=== PATIENT | male | born 1990 | race Caucasian/White ===

== ENCOUNTER 2021-08-25 22:36 | Emergency (ER) | payer SELFPAY ==
--- NOTE | 2021-08-25 22:38 | XRR_ITS ---
PROCEDURE INFORMATION: Exam: XR Chest Exam date and time: 08/25/2021 11:44 PM Age: 31 years old Clinical indication: Radiating; Patient HX: C/O chest pain with radiation to left arm. ; Additional info: Cp TECHNIQUE: Imaging protocol: XR of the chest. Views: 1 view. COMPARISON: No relevant prior studies available. FINDINGS: Lungs: No consolidation. Pleural spaces: No pleural effusion. No pneumothorax. Heart/Mediastinum: No cardiomegaly. Bones/joints: Unremarkable. XR/XR chest 1V portable [id number] IMPRESSION: No acute abnormality demonstrated.
[2021-08-25 22:40] VITALS: BP 127/85; PULSE 82; RESP 20; TEMP 36.6; O2SAT 98; BMI 28.5
[2021-08-25 23:08] LABS: Basophils # 0.1 10^3/uL (0.0-0.1); Basophils % 0.5 %; Eosinophils # 0.3 10^3/uL (0.0-0.8); Eosinophils % 2.3 %; Hematocrit 49.2 % (42.0-52.0); Hemoglobin 16.6 g/dL (11.7-16.6); Lymphocytes # 2.6 10^3/uL (0.8-4.8); Lymphocytes % 21.1 %; Mean Corpuscular HGB Conc 33.7 g/dL (30.0-36.0); Mean Corpuscular Hemoglobin 30.5 pg (28.0-34.0); Mean Corpuscular Volume 90.3 fl (80-94); Mean Platelet Volume 10.3 fL (7.4-10.4); Monocytes # 1.4 10^3/uL (0.2-0.9); Neutrophils # 7.99 10^3/uL (1.8-7.7); Neutrophils % 64.8 %; Nucleated Red Blood Cells % 0 %; Platelet Count 245 10^3/cmm (130-400); Red Blood Count 5.45 10^6/uL (4.1-5.3); Red Cell Distribution Width 12.3 % (12.1-15.1); White Blood Count 12.4 10^3/uL (4.0-10.0)
[2021-08-25 23:35] LABS: Alanine Aminotransferase 21 U/L (0-41); Albumin Level 4.9 g/dL (3.5-5.2); Alkaline Phosphatase 87 IU/L (40-130); Anion Gap 15.1 (5-19); Aspartate Amino Transferase 16 U/L (0-40); Blood Urea Nitrogen 17 mg/dL (6-20); Calcium 9.6 mg/dL (8.5-10.5); Carbon Dioxide 28 mmol/L (22-29); Chloride 100 mmol/L (98-107); Globulin 2.7 g/dL (1.3-4.6); Glomerular Filtration Rate 87.2 mL/min (90-130); Glucose 90 mg/dL (65-115); Osmolality Calculated 289 mOsm/kg (285-295); Potassium 4.1 mmol/L (3.5-5.1); Sodium 139 mmol/L (136-145); Total Protein 7.6 g/dL (6.6-8.7)
[2021-08-25 23:36] LABS: Troponin(5th) Baseline 6 ng/L (0-15)
[2021-08-26 01:00] VITALS: BP 119/78; PULSE 96; RESP 16; O2SAT 96
[2021-08-26 01:26] VITALS: PULSE 105; RESP 18; O2SAT 96
[2021-08-26 01:56] VITALS: BP 142/96; PULSE 74; RESP 18; O2SAT 97
[2021-08-26 02:01] LABS: Troponin 5 2HR Delta 0 ABS# (0-10)
--- NOTE | 2021-08-26 02:10 | W.ED.CHESTPA ---
HPI - Chest Pain General: Chief Complaint: Chest Pain Stated Complaint: CP/left arm numbness Time Seen by Provider: 08/26/21 01:02 Source: patient Mode of arrival: ambulatory Limitations: no limitations History of Present Illness: 31-year-old male who states he has been having some left shoulder pain has been intermittent over the last week he states is also radiated to his left chest. 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 He states that tonight though the pain had worsened and was sharp in nature going down his arm and started 10 PM and has not lessened. He is concerned that it kept going. He denies any worsening or improving factors. Denies any heart history. Associated symptoms: Deny abdominal pain, dyspnea, fever(s), nausea or vomiting Review of Systems Const: Denies: fever(s), chills, body aches or change in appetite Eyes: Denies: blurry vision or eye discomfort ENMT: Denies: throat pain or dental pain Card: Reports: chest pain Resp: Denies: dyspnea GI: Denies: abdominal pain, nausea, vomiting or diarrhea : Denies: dysuria Musc: Reports: extremity pain Skin/Breast: Denies: rash Neuro: Denies: headache(s) Psych: Denies: depression Antonio/Lymph: Denies: easy bruising All/Imm: Denies: urticaria Physical Exam Const: COMMON NORMALS: no acute distress, patient oriented x3 and healthy appearing HENMT: COMMON NORMALS: normocephalic and atraumatic HEAD & SCALP: normocephalic and atraumatic Eye: COMMON NORMALS: Equal, round and reactive pupils present and EOMs intact bilaterally PUPIL: Yes Equal, round and reactive pupils present Neck/C-Spine: COMMON NORMALS: full ROM and supple Chest: COMMONS NORMALS: normal inspection of the chest and normal palpation of entire chest wall Resp: COMMON NORMALS: normal respiratory effort, No retractions, No use of accessory muscles and clear to auscultation bilaterally AUSCULTATION: clear to auscultation bilaterally Cardio: COMMON NORMALS: regular rate, regular rhythm and No murmurs present (Cardio) RATE: regular rate RHYTHM: regular rhythm GI: COMMON NORMALS: Normal to inspection, nondistended, normoactive bowel sounds present, Soft to palpation, non-tender and no masses PALPATION: Yes Soft to palpation Extremity: COMMON NORMALS: normal to inspection and full ROM NARRATIVE EXTREMITY EXAM: Point tender over left lateral trapezius that reproduces his pain full range of motion without difficulty distal pulses intact Neuro: COMMON NORMALS: patient oriented x3, moves all extremities and no focal motor deficits Psych: COMMON NORMALS: mental status grossly normal, Normal thought process present and cooperative THOUGHT PROCESS: Normal thought process present Skin: COMMON NORMALS: no rashes or lesions noted and no wounds GENERAL SKIN EXAM: no rashes or lesions noted Course Vital Signs: Vital signs: Vital Signs Temperature 97.8 F 08/25/21 22:40 Pulse Rate 82 08/25/21 22:40 Respiratory Rate 20 H 08/25/21 22:40 Blood Pressure 127/85 08/25/21 22:40 Pulse Oximetry 98 08/25/21 22:40 MDM - Chest Pain Medical Decision Making Patient presents here with some chest pains very atypical in nature on exam he does have tenderness over his left shoulder seems to be where his pain is actually originating from. He states he is at arm a lot at work could be an overuse injury x-ray here is normal he is full range of motion both troponins are normal he is stable for discharge will place him on Naprosyn Robaxin he is to follow-up his PCP and return if worsening. Lab Data : 08/25/21 23:03 08/25/21 23:03 Radiology Impressions Chest X-Ray 08/25/21 22:38 IMPRESSION: No acute abnormality demonstrated. Laboratory Results WBC 12.4 10^3/uL (4.0-10.0) H 08/25/21 23:03 RBC 5.45 10^6/uL (4.1-5.3) H 08/25/21 23:03 Hgb 16.6 g/dL (11.7-16.6) 08/25/21 23:03 Hct 49.2 % (42.0-52.0) 08/25/21 23:03 MCV 90.3 fl (80-94) 08/25/21 23:03 MCH 30.5 pg (28.0-34.0) 08/25/21 23:03 MCHC 33.7 g/dL (30.0-36.0) 08/25/21 23:03 RDW 12.3 % (12.1-15.1) 08/25/21 23:03 Plt Count 245 10^3/cmm (130-400) 08/25/21 23:03 MPV 10.3 fL (7.4-10.4) 08/25/21 23:03 Neut % (Auto) 64.8 % 08/25/21 23:03 Lymph % (Auto) 21.1 % 08/25/21 23:03 Stone % (Auto) 11.0 % 08/25/21 23:03 Eos % (Auto) 2.3 % 08/25/21 23:03 Baso % (Auto) 0.5 % 08/25/21 23:03 Neut # (Auto) 7.99 10^3/uL (1.8-7.7) H 08/25/21 23:03 Lymph # (Auto) 2.6 10^3/uL (0.8-4.8) 08/25/21 23:03 Stone # (Auto) 1.4 10^3/uL (0.2-0.9) H 08/25/21 23:03 Eos # (Auto) 0.3 10^3/uL (0.0-0.8) 08/25/21 23:03 Baso # (Auto) 0.1 10^3/uL (0.0-0.1) 08/25/21 23:03 Nucleated RBC % (auto) 0 % 08/25/21 23:03 Nucleated RBCs # 0.0 /100WBC 08/25/21 23:03 Sodium 139 mmol/L (136-145) 08/25/21 23:03 Potassium 4.1 mmol/L (3.5-5.1) 08/25/21 23:03 Chloride 100 mmol/L (98-107) 08/25/21 23:03 Carbon Dioxide 28 mmol/L (22-29) 08/25/21 23:03 Anion Gap 15.1 (5-19) 08/25/21 23:03 BUN 17 mg/dL (6-20) 08/25/21 23:03 Creatinine 1.0 mg/dL (0.7-1.2) 08/25/21 23:03 GFR Calculation 87.2 mL/min (90-130) L 08/25/21 23:03 Glucose 90 mg/dL (65-115) 08/25/21 23:03 Calculated Osmolality 289 mOsm/kg (285-295) 08/25/21 23:03 Calcium 9.6 mg/dL (8.5-10.5) 08/25/21 23:03 Total Bilirubin 1.0 mg/dL (0.15-1.2) 08/25/21 23:03 AST 16 U/L (0-40) 08/25/21 23:03 ALT 21 U/L (0-41) 08/25/21 23:03 Alkaline Phosphatase 87 IU/L (40-130) 08/25/21 23:03 Troponin T Baseline 6 ng/L (0-15) 08/25/21 23:03 Troponin T 120 Minute 6.00 ng/L (0-15) 08/26/21 01:24 Delta Troponin T 0 ABS# (0-10) 08/26/21 01:24 Total Protein 7.6 g/dL (6.6-8.7) 08/25/21 23:03 Albumin 4.9 g/dL (3.5-5.2) 08/25/21 23:03 Globulin 2.7 g/dL (1.3-4.6) 08/25/21 23:03 EKG Data EKG 1: I personally reviewed and interpreted this EKG as follows: EKG interpretation date: 08/25/21 EKG interpretation time: 22:46 Interpretation: Normal sinus rhythm heart rate [address] or T wave normalities QRS 93 QTc 364 Discharge Plan Discharge Patient Disposition: Home Clinical Impression: Chest pain Qualifiers: Chest pain type: unspecified Qualified Code(s): R07.9 - Chest pain, unspecified Left shoulder pain Qualifiers: Chronicity: acute Qualified Code(s): M25.512 - Pain in left shoulder Condition: Stable Prescriptions: New methocarbamol 750 mg tablet 750 mg PO Q6H PRN (Reason: spasms) Qty: 20 0RF Naprosyn 500 mg tablet 500 mg PO BID PRN (Reason: pain) Qty: 20 0RF Discharge Orders: Discharge ED (Routine); Ordered 08/26/21 Ordered By: Bassem Fang Discharge Diet: Advance as tolerated Discharge Activity: Resume usual activity Patient Instructions: Chest Pain (ED), Shoulder Pain (ED) Coding Level of Care Code ED Professional Services Manager for [facility]
[2021-08-26 02:30] VITALS: BP 135/82; PULSE 91; RESP 19; O2SAT 97
[2021-08-26] MEDS: naproxen 500 mg Tablet PO (02:37)
== END 2021-08-26 02:35 | disposition home or self-care (01) ==
PROVIDERS: Emergency Provider Emergency Medicine
DX: R07.9 Chest pain, unspecified (principal); M25.512 Pain in left shoulder
CPT/HCPCS: 36415; 71045; 80053; 84484; 85025; 99283